=== PATIENT | male | born 1975 | race Two or more races ===

== ENCOUNTER 2020-04-28 11:45 | Day surgery (SDC) | payer OTHER ==
[~2020-04-28 11:45] MED LIST: CEFAZOLIN 2 GM/D5W RTU 2 GM/50 ML RTUPB IV PRN; FENTANYL CITRATE INJ/PF 100 MCG/2 ML AMPUL ONE; MIDAZOLAM 2 MG/2 ML INJ ONE; ONDANSETRON HCL INJ/PF 4 MG/2 ML SDV ONE; PROPOFOL INJ 200 MG/20 ML VIAL IV ONE; ROPIVACAINE HCL 0.5% INJ/PF (5 MG/1 ML) 30 ML SDV ONE
[2020-04-28 12:42] LABS: HEMATOCRIT 45.8 % (37.9-51.0); HEMOGLOBIN 15.6 g/dL (13.5-17.0); MEAN CORPUSCULAR HEMOGLOBIN 29.1 pg (27.0-33.4); MEAN CORPUSCULAR VOLUME 86 fl (80-97); PLATELET COUNT 278 10^3/uL (150-450); RED BLOOD COUNT 5.35 10^6/uL (4.35-5.55); RED CELL DISTRIBUTION WIDTH 13.2 % (11.5-14.0); WHITE BLOOD COUNT 10.1 10^3/uL (4.0-10.5)
[2020-04-28 12:53] LABS: ANION GAP 9 (5-19); BLOOD UREA NITROGEN 13 mg/dL (7-20); CALCIUM 9.7 mg/dL (8.4-10.2); CARBON DIOXIDE 27 mmol/L (22-30); CHLORIDE 103 mmol/L (98-107); GLUCOSE 103 mg/dL (75-110); POTASSIUM 4.1 mmol/L (3.6-5.0)
--- NOTE | 2020-04-28 13:15 | RADIOLOGY REPORT (SQ) ---
EXAM DESCRIPTION: CHEST SINGLE VIEW IMAGES COMPLETED DATE/TIME: 04/28/2020 12:40 pm REASON FOR STUDY: pre-operative COMPARISON: None. EXAM PARAMETERS: NUMBER OF VIEWS: One view. TECHNIQUE: Single frontal radiographic view of the chest acquired. RADIATION DOSE: NA LIMITATIONS: None. FINDINGS: LUNGS AND PLEURA: No opacities, masses or pneumothorax. No pleural effusion. MEDIASTINUM AND HILAR STRUCTURES: No masses. Contour normal. HEART AND VASCULAR STRUCTURES: Heart normal in size. Normal vasculature. BONES: No acute findings. HARDWARE: None in the chest. OTHER: No other significant finding. IMPRESSION: NO ACUTE RADIOGRAPHIC FINDING IN THE CHEST. TECHNICAL DOCUMENTATION: JOB ID: [id number] 2010 [employer]- All Rights Reserved Reading location - IP/workstation name: [email or web address]
[2020-04-28] MEDS ORDERED: BUPIVACAINE HCL 0.5 % INJ/PF 30 ML SDV ONE (13:30)
[2020-04-28] MEDS ORDERED: CEFAZOLIN 2 GM/D5W RTU 2 GM/50 ML RTUPB IV ONE (13:41)
[2020-04-28] MEDS ORDERED: SUCCINYLCHOLINE CHLORIDE INJ 200 MG/10 ML VIAL ONE (13:57)
[2020-04-28 14:00] LABS: AMORPHOUS SEDIMENT,URINE 1+ /HPF; APPEARANCE,URINE CLOUDY; BILIRUBIN,URINE NEGATIVE (NEGATIVE); COLOR,URINE YELLOW; GLUCOSE, URINE NEGATIVE (NEGATIVE); KETONES,URINE NEGATIVE (NEGATIVE); LEUKOCYTE ESTERASE,URINE NEGATIVE (NEGATIVE); NITRITE,URINE NEGATIVE (NEGATIVE); PROTEIN,URINE NEGATIVE (NEGATIVE); URINE SPECIFIC GRAVITY 1.015; UROBILINOGEN,URINE NEGATIVE mg/dL (<2.0)
[2020-04-28] MEDS ORDERED: FENTANYL CITRATE INJ/PF 100 MCG/2 ML AMPUL IV PRN ×3 (15:41)
[2020-04-28] MEDS ORDERED: MORPHINE SULFATE 10 MG/ML INJ IV PRN (15:41)
[2020-04-28] MEDS ORDERED: DIPHENHYDRAMINE HCL 50 MG/ML VIAL IV PRN (15:41)
[2020-04-28] MEDS ORDERED: MEPERIDINE HCL/PF INJ 25 MG/1 ML DISP.SYRIN IV PRN (15:41)
[2020-04-28] MEDS ORDERED: ONDANSETRON HCL INJ/PF 4 MG/2 ML SDV IV PRN (15:41)
[2020-04-28] MEDS ORDERED: PROMETHAZINE HCL INJ 25 MG/1 ML VIAL IV PRN ×2 (15:41)
--- NOTE | 2020-04-28 16:30 | Operative Report ---
Operative Report DATE OF SURGERY: 04/28/20 PREOPERATIVE DIAGNOSIS: Right humeral shaft fracture POSTOPERATIVE DIAGNOSIS: Same OPERATION: Open reduction internal fixation right humeral shaft fracture minimally invasive plate osteosynthesis SURGEON: CARLOS FONSECA ANESTHESIA: GA COMPLICATIONS: None ESTIMATED BLOOD LOSS: Minimal PROCEDURE: Indication for above procedure: 44-year-old male who sustained a fall from a ladder onto his right humerus while at work. Patient had radiographs confirming femoral shaft fracture. Initially treatment was performed with a fracture brace however patient continued to have pain complaining of fracture instability. At that point we discussed treatment including operative versus nonoperative intervention discussing risks and benefits of both decision was made to proceed with operative treatment. Procedure In Detail: Patient was seen and evaluated in the preoperative holding area. The [facility] upper extremity was initialized and marked. Patient received 2g of Ancef IV for bacterial prophylaxis. Patient was taken back to the operative room where transferred to the operative table and placed under general anesthesia. Once they were adequately anesthetized a pre-scrub was performed with chlorhexidine A surgical team debriefing was performed ensuring all instrumentation was available, the surgical procedure was discussed with possible concerns reviewed. The upper extremity was prepped with ChloraPrep and draped in a sterile fashion. A timeout was done identifying correct patient, procedure and extremity everyone in attendance agree with this and verbalized no concerns. Prior to skin incision a 10 hole and 12 hole 4.5 Carlton plate was placed over the skin to determine appropriate size decision was made to proceed with 10 hole plate. Longitudinal skin incision was made along the distal portion of the deltopectoral was interval cephalic vein was identified and retracted. The deltoid and pectoralis were retracted respectively identifying the anterior humerus. Second skin incision was made 2 cm distal to the antecubital fossa midline. Blunt dissection was performed. Cephalic vein once again identified and retracted. Lateral antebrachial cutaneous nerve was identified at the interval between the biceps and brachialis. Brachialis was then split midline exposing the anterior humerus. No reversed retractors were placed laterally to protect the radial nerve. Forearm was placed in full supination during distal dissection and manipulation to avoid radial nerve injury. Tissue elevator was then placed from distal to proximal deep to surrounding soft tissue and retrieved through the proximal skin incision. A slight bend was applied to the plate on the back table. Plate was then percutaneously advanced from distal to proximal. C arm was then obtained confirming appropriate placement and adequate number of cortices proximally and distally. Plate was provisionally fixated proximally with a K wire. Bicortical screw was placed through the compression portion of the plate. C-arm confirmed appropriate placement of the plate and fixation. Attention then turned distally. With C arm assistance the fracture was then reduced closing the prior gap. Plate was provisionally fixated with a K wire distally. Once satisfied with adequate reduction bicortical screw was placed in compression mode distally. C arm was obtained confirming appropriate alignment and placement of the hardware. Fixation was then completed distally with 2 additional 5.0 bicortical locking screws. Final fixation was completed proximally with 2 additional 5.0 mm locking screws proximally completing 6 cortices of fixation proximal and distal to the fracture. No evidence of fracture or instability. No evidence of malrotation compared to noninvolved left upper extremity. Patient full elbow range of motion. Wound was then copiously irrigated with normal saline. Any residual peripheral bleeding was controlled with cautery. Deltopectoral interval was closed with interrupted 2-0 Vicryl suture. Subcutaneous tissues were closed with interrupted 4-0 Monocryl suture. Skin was closed running subcuticular 4-0 Monocryl reinforced with Dermabond and Steri-Strips. Soft dressing was placed in a sling applied. Sponge counts, instrument counts, needle counts were correct. Patient was then awoken from anesthesia. Transferred from the operating room table to the operating room stretcher. There was no intraoperative complications patient tolerated procedure well stable to PACU. Postoperative plan: Patient will follow in the office in 2 weeks at which point we will obtain radiographs. We will continue elbow range of motion. Anticipate return to full activity 4-6 months postoperative pending fracture healing.
[2020-04-28] MEDS ORDERED: ONDANSETRON HCL INJ/PF 4 MG/2 ML SDV ONE (16:31)
--- NOTE | 2020-04-28 16:33 | RADIOLOGY REPORT (SQ) ---
EXAM DESCRIPTION: NO CHG FLUORO; HUMERUS RIGHT IMAGES COMPLETED DATE/TIME: 04/28/2020 4:24 pm REASON FOR STUDY: ORIF RT HUMERUS S42.321A DISPLACED TRANSVERSE FX SHAFT OF HUMERUS, RIGHT ARM COMPARISON: None. FLUOROSCOPY TIME: 2.1 minutes 13 images saved to PACS. TECHNIQUE: Intra-operative images acquired during surgical procedure to evaluate progress. NUMBER OF IMAGES: 13 LIMITATIONS: None. FINDINGS: Plate and screw fixation of humeral fracture. IMPRESSION: IMAGE(S) OBTAINED DURING PROCEDURE. COMMENT: Quality ID 145: Final reports for procedures using fluoroscopy that document radiation exp osure indices, or exposure time and number of fluorographic images (if radiation exposure indices are not available) Please consult full operative report of the attending physician for description of the procedure. TECHNICAL DOCUMENTATION: JOB ID: [id number] 2010 [employer]- All Rights Reserved Reading location - IP/workstation name: [email or web address]
--- NOTE | 2020-04-28 16:33 | RADIOLOGY REPORT (SQ) ---
EXAM DESCRIPTION: NO CHG FLUORO; HUMERUS RIGHT IMAGES COMPLETED DATE/TIME: 04/28/2020 4:24 pm REASON FOR STUDY: ORIF RT HUMERUS S42.321A DISPLACED TRANSVERSE FX SHAFT OF HUMERUS, RIGHT ARM COMPARISON: None. FLUOROSCOPY TIME: 2.1 minutes 13 images saved to PACS. TECHNIQUE: Intra-operative images acquired during surgical procedure to evaluate progress. NUMBER OF IMAGES: 13 LIMITATIONS: None. FINDINGS: Plate and screw fixation of humeral fracture. IMPRESSION: IMAGE(S) OBTAINED DURING PROCEDURE. COMMENT: Quality ID [id number]: Final reports for procedures using fluoroscopy that document radiation exp osure indices, or exposure time and number of fluorographic images (if radiation exposure indices are not available) Please consult full operative report of the attending physician for description of the procedure. TECHNICAL DOCUMENTATION: JOB ID: [id number] 2010 [employer]- All Rights Reserved Reading location - IP/workstation name: [email or web address]
--- NOTE | 2020-04-28 16:34 | Discharge Summary ---
Discharge Summary (SDC) - Discharge Final Diagnosis: Right humeral shaft fracture Date of Surgery: 04/28/20 Discharge Date: 04/28/20 Condition: Good Treatment or Instructions: Schedule Follow Up w/ Dr. Abdi Berumen @ [facility] to be seen in 10-14 days or as scheduled [place]: [place]: Momence: May remove dressing on postop day #3, keep incision covered and dry, do not remove Steri-Strips Cryocuff to shoulder May begin hand, wrist and elbow range of motion 4x per day or as tolerated. May remove sling for hygiene purposes otherwise continue it at all times. Stool softener of choice when on pain medication. USE OF [id number] IBUPROFEN: Ibuprofen (Advil, Nuprin, Medipren, Motrin IB) is a medication for fever and pain control. In addition, it has anti- inflammatory effects which may be beneficial, especially in the treatment of injuries. It's best to take ibuprofen with food. Persons with ulcer disease or al lergy to aspirin should notify their physician of this before taking ibuprofen. Ibuprofen can be given every four to six hours, for a total of four doses daily. Age Pain or fever dose Antiinflammatory dose 6-8 yr 200 mg (1 tab) 200 mg (1 tab) 9-11 yr 200 mg (1 tab) 200-400 mg (1-2 tab) 11-14 yr 200-400 mg (1-2 tab) 400 mg (2 tab) 15-adult 400 mg (2 tab) 600 mg (3 tab) ORAL NARCOTIC MEDICATION: You have been given a prescription for pain control. This medication is a narcotic. It's best taken with food, as nausea can result if taken on an empty stomach. Don't operate machinery or drive within six hours of taking this medication . Do not combine this medicine with alcohol, or with any medication which can cause sedation (such as cold tablets or sleeping pills) unless you get permission from the physician. Narcotics tend to cause constipation. If possible, drink plenty of fluids and eat a diet high in fiber and fruits. Please be aware that prescription narcotics also have the potential for abuse. People become addicted to these medications because of the general sense of wellbeing that they induce. This feeling along with a significant reduction in tension, anxiety, and aggression provides a stimulating seductive quality to these drugs. Once your pain is under control, we encourage you to discard your unused narcotics. Prescriptions: Oxycodone HCl [Oxycontin Sr 10 mg Tablet] 10 mg PO Q12 PRN #20 tab.sr.12h PRN Reason: Oxycodone HCl/Acetaminophen [Percocet 7.5-325 mg Tablet] 1 tab PO Q6 PRN #25 tab PRN Reason: Discharge Diet: As Tolerated Respiratory Treatments at Home: Deep Breathing/Coughing Discharge Activity: No Lifting Over 10 Pounds, No Lifting/Push/Pulling Report the Following to Your Physician Immediately: Fever over 101 Degrees, Unusual Bleeding, Redness, Swelling, Warmth, Increased Soreness, Drainage-Yellow
[2020-04-28] MEDS ORDERED: FENTANYL CITRATE INJ/PF 100 MCG/2 ML AMPUL ONE ×2 (16:39→16:44)
[2020-04-28] MEDS ORDERED: HYDROMORPHONE HCL INJ/PF 2 MG/ML AMPULE ONE (16:58)
[2020-04-28] MEDS: HYDROMORPHONE HCL INJ/PF 2 MG/ML AMPULE IV PRN ×2 (17:00→17:08)
[2020-04-28] MEDS ORDERED: ROPIVACAINE HCL 0.2% INJ/PF (2 MG/ML) 20 ML SDV ONE (18:05)
[2020-04-28] MEDS ORDERED: KETOROLAC TROMETHAMINE INJ/PF 30 MG/1 ML SDV ONE (19:20)
[2020-04-28] MEDS: KETOROLAC TROMETHAMINE INJ/PF 30 MG/1 ML SDV IV ONE ×2 (19:20→20:57)
[2020-04-28] MEDS: ONDANSETRON 4 MG TAB.RAPDIS PO PRN (22:35)
--- NOTE | 2020-04-29 00:52 | EKG REPORT ---
SEVERITY:- BORDERLINE ECG - SINUS RHYTHM BORDERLINE INFERIOR Q WAVES : Confirmed by: Monika Stovall 29-Apr-2020 00:51:50
[2020-04-29] MEDS: ONDANSETRON 4 MG TAB.RAPDIS PO PRN (02:15)
[2020-04-29] MEDS: HYDROMORPHONE HCL INJ/PF 2 MG/ML AMPULE IV PRN ×2 (02:15→06:29)
[2020-04-29 08:48] VITALS: BP 118/67
== END 2020-04-29 11:34 | disposition home or self-care (01) ==
LOC: OROUT 11:45 → 4N 20:12 → OROUT 04-29 11:34
PROVIDERS: ATTEND Orthopaedic Surgery
DX: S42.321A Displaced transverse fracture of shaft of humerus, right arm, initial encounter for closed fracture (principal); W11.XXXA Fall on and from ladder, initial encounter; Z91.81 History of falling; Z87.891 Personal history of nicotine dependence; Z03.818 Encounter for observation for suspected exposure to other biological agents ruled out
CPT/HCPCS: 36415; 85027; 87635; 80048; 81001; 71045; 73060; 93005; 93010; 64415; 76942; 01630; 24515; C1713 ×5; J2795 ×2; J2250; S0119 ×2; J3010; J1885; J1170 ×2; J0330; J2405; J2704; J0690; C9803; J3490